=== PATIENT | female | born 1995 | race Caucasian/White ===

== ENCOUNTER 2017-02-23 00:05 | Observation (INO) | payer MEDICAID ==
[~2017-02-23] VITALS: Ht 152.4 cm; Wt 57.2 kg
[2017-02-23] MEDS ORDERED: PREN-88 PO (00:50)
[2017-02-23] MEDS ORDERED: OCD PO (00:52)
[2017-02-23 00:59] LABS: CLARITY URINE CLEAR (CLEAR); COLOR URINE YELLOW (YELLOW); GLUCOSE URINE NEGATIVE (NEGATIVE); KETONES URINE NEGATIVE (NEGATIVE); LEUKOCYTE ESTERASE URINE NEGATIVE (NEGATIVE); NITRITE URINE NEGATIVE (NEGATIVE); OCCULT BLOOD URINE 3+ (NEGATIVE); PROTEIN URINE NEGATIVE (NEGATIVE); SPECIFIC GRAVITY URINE 1.016 (1.005-1.030); UROBILINOGEN URINE 0.2 E.U./dL (0.2-1.0)
== END 2017-02-23 02:46 | disposition home or self-care (01) ==
LOC: L&D 00:05
PROVIDERS: ADMIT Obstetrics & Gynecology; ATTEND Obstetrics & Gynecology
DX: O46.92 Antepartum hemorrhage, unspecified, second trimester (principal); Z3A.27 27 weeks gestation of pregnancy
CPT/HCPCS: 76805; 81001; 99281; G0378

== ENCOUNTER 2017-04-27 17:54 | Observation (INO) | payer MEDICAID ==
[~2017-04-27] VITALS: Ht 152.4 cm; Wt 64.4 kg
[~2017-04-27 17:54] MED LIST: OCD PO; PREN-88 PO
== END 2017-04-27 20:00 | disposition home or self-care (01) ==
LOC: L&D 17:54
PROVIDERS: ADMIT Obstetrics & Gynecology; ATTEND Obstetrics & Gynecology
DX: O36.5930 Maternal care for other known or suspected poor fetal growth, third trimester, not applicable or unspecified (principal); Z3A.36 36 weeks gestation of pregnancy
CPT/HCPCS: 59025; 76815; 76818; G0378; 99281

== ENCOUNTER 2017-05-18 01:43 | Inpatient (IN) | payer MEDICAID ==
[~2017-05-18] VITALS: Ht 152.4 cm; Wt 65.3 kg
[2017-05-18] MEDS ORDERED: LACTATED RINGERS 1,000 ML IV SCH (03:55)
[2017-05-18] MEDS ORDERED: DEXT 5%/LR + PITOCIN 20UNITS/L 1,000 ML IV SCH ×2 (03:55→09:10)
[2017-05-18] MEDS ORDERED: METHYLERGONOVINE MALEATE 0.2 MG/ML IM PRN (04:00)
[2017-05-18] MEDS ORDERED: CARBOPROST TROMETHAMINE 250 MCG/ML AMPUL IM PRN (04:00)
[2017-05-18] MEDS ORDERED: NALOXONE HCL 0.4 MG/ML 1ML VIAL IM PRN (04:00)
[2017-05-18] MEDS ORDERED: LIDOCAINE HCL 1% 20ML VIAL (Pyxis) INJ INFIL SCH (04:00)
[2017-05-18] MEDS ORDERED: MISOPROSTOL 100MCG TABLET VG SCH (04:00)
[2017-05-18] MEDS ORDERED: BUTORPHANOL TARTRATE 2 MG/ML VIAL IV PRN (04:00)
[2017-05-18 05:10] LABS: *AMPHETAMINES SCREEN URINE NEGATIVE (NEGATIVE); *BARBITURATES SCREEN URINE NEGATIVE (NEGATIVE); *BENZODIAZEPINES SCREEN URINE NEGATIVE (NEGATIVE); *COCAINE SCREEN URINE NEGATIVE (NEGATIVE); CANNABINOID URINE SCREEN NEGATIVE (NEGATIVE); METHADONE URINE SCREEN NEGATIVE (NEGATIVE); OPIATES URINE SCREEN NEGATIVE (NEGATIVE); PHENCYCLIDINE URINE SCREEN NEGATIVE (NEGATIVE)
[2017-05-18 05:10] LABS: BASOPHILS % 0.3 % (0.0-2.0); EOSINOPHILS % 0.1 % (0.0-5.0); HEMATOCRIT. 34.9 % (36.0-48.0); HEMOGLOBIN. 11.5 g/dL (12.0-16.0); LYMPHOCYTES % 12.9 % (20.0-50.0); MEAN CORPUSCULAR HEMOGLOBIN 26.6 pg (28.0-32.0); MEAN CORPUSCULAR VOLUME 80.9 fL (81.0-99.0); MONOCYTES % 6.7 % (2.0-8.0); PLATELET 163 x1000/uL (130-400); RED BLOOD CELL COUNT 4.32 mill/uL (4.2-5.4); RED CELL DISTRIBUTION WIDTH 14.7 % (11.6-14.6)
[2017-05-18 05:16] LABS: PARTIAL THROMBOPLASTIN TIME 30.1 sec (23.4-31.0); PROTHROMBIN TIME 10.8 sec (9.4-11.6)
[2017-05-18] MEDS ORDERED: ACETAMINOPHEN WITH CODEINE 300/30MG TABLET PO PRN (09:15)
[2017-05-18] MEDS ORDERED: IBUPROFEN 400MG TABLET PO PRN (09:15)
[2017-05-18] MEDS ORDERED: RHO(D) IMMUNE GLOBULIN 300 MCG/SYR IM PRN (09:15)
[2017-05-18 10:01] LABS: CLARITY URINE CLOUDY (CLEAR); COLOR URINE YELLOW (YELLOW); GLUCOSE URINE NEGATIVE (NEGATIVE); KETONES URINE 1+ (NEGATIVE); LEUKOCYTE ESTERASE URINE 1+ (NEGATIVE); NITRITE URINE NEGATIVE (NEGATIVE); OCCULT BLOOD URINE TRACE (NEGATIVE); PH URINE 5.5 (4.5-8.0); PROTEIN URINE 1+ (NEGATIVE); SPECIFIC GRAVITY URINE 1.034 (1.005-1.030); UROBILINOGEN URINE 0.2 E.U./dL (0.2-1.0)
[2017-05-18 11:00] VITALS: BP 105/60
[2017-05-18 11:05] LABS: HEPATITIS B SURFACE ANTIGEN NEGATIVE; RUBELLA IGG 63.5 IU/mL (4.99-10)
[2017-05-18] MEDS: BENZOCAINE/LANOLIN/ALOE VERA SPRAY TOP PRN (11:19)
[2017-05-18 11:30] VITALS: BP 102/47
[2017-05-18 16:35] VITALS: BP 109/60
[2017-05-18] MEDS: IBUPROFEN 800MG TABLET PO PRN (20:15)
[2017-05-18 23:55] VITALS: BP 96/52
[2017-05-19 06:50] LABS: BASOPHILS % 0.5 % (0.0-2.0); EOSINOPHILS % 0.4 % (0.0-5.0); HEMATOCRIT. 28.4 % (36.0-48.0); HEMOGLOBIN. 9.3 g/dL (12.0-16.0); LYMPHOCYTES % 22.6 % (20.0-50.0); MEAN CORPUSCULAR HEMOGLOBIN 26.7 pg (28.0-32.0); MEAN CORPUSCULAR VOLUME 81.6 fL (81.0-99.0); MEAN PLATELET VOLUME 10.4 fl (7.4-10.4); MONOCYTES % 7.1 % (2.0-8.0); NEUTROPHILS % 69.4 % (40.0-76.0); PLATELET 150 x1000/uL (130-400); RED BLOOD CELL COUNT 3.48 mill/uL (4.2-5.4); RED CELL DISTRIBUTION WIDTH 14.7 % (11.6-14.6)
[2017-05-19 08:30] VITALS: BP 103/44
[2017-05-19 16:35] VITALS: BP 103/55
[2017-05-19] MEDS: IBUPROFEN 800MG TABLET PO PRN (19:45)
[2017-05-19] MEDS: BENZOCAINE/LANOLIN/ALOE VERA SPRAY TOP PRN (19:46)
[2017-05-20] VITALS: BP 100/57
[2017-05-20 09:00] VITALS: BP 114/68
== END 2017-05-20 15:10 | disposition home or self-care (01) | DRG 560 ==
LOC: OBSVTOIN 01:43 → L&D 01:43 → 7EST PP/OB 10:54
PROVIDERS: ADMIT Obstetrics & Gynecology; ATTEND Obstetrics & Gynecology
PROC: 10E0XZZ Delivery of Products of Conception, External Approach (ICD-10-PCS; 2017-05-18)
PROC: 0W8NXZZ Division of Female Perineum, External Approach (ICD-10-PCS; principal; 2017-05-18 08:45)
DX: O77.0 Labor and delivery complicated by meconium in amniotic fluid (principal); D64.9 Anemia, unspecified; O99.03 Anemia complicating the puerperium; Z37.0 Single live birth; Z3A.39 39 weeks gestation of pregnancy
CPT/HCPCS: 36415; 80305; 81001; 85025; 85610; 85730; 86592; 86703; 86762; 86850; 86900; 87340; G0378; J0595; J2310; J2590; J3490; J7120